=== PATIENT | female | born 1985 | race Caucasian/White ===

== ENCOUNTER 2022-02-28 14:37 | Emergency (ER) | payer OTHER, MEDICAID, SELFPAY ==
[2022-02-28 14:49] VITALS: BP 131/82; PULSE 95; RESP 18; TEMP 36.6; O2SAT 100
[2022-02-28] MEDS: PROPARACAINE 0.5% OPHTH SOL 1 DROPS EYE-RIGHT (14:56)
== END 2022-02-28 17:38 | disposition left against medical advice (07) ==
PROVIDERS: Emergency Provider Emergency Medicine
DX: T15.91XA Foreign body on external eye, part unspecified, right eye, initial encounter (principal)
CPT/HCPCS: 99282

== ENCOUNTER 2023-01-20 09:14 | Emergency (ER) | payer OTHER, MEDICAID, SELFPAY ==
[2023-01-20 09:22] VITALS: BP 138/71; PULSE 91; RESP 18; TEMP 36.8; O2SAT 100; BMI 29.2
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
--- NOTE | 2023-01-20 09:33 | DI.RAD.S_ITS ---
PROCEDURE: XR HAND LT MIN 3V INDICATIONS: r/o fx TECHNIQUE: 3 views of the hand(s) acquired. COMPARISON: None. FINDINGS: Bones: No fractures or dislocations. Carpal bones are normally aligned. No suspicious bony lesions. Soft tissues: No suspicious soft tissue calcifications. IMPRESSION: Unremarkable left hand radiographs. No fracture Approved by: Patrick Soto M.D. on 01/20/2023 at 10:09
--- NOTE | 2023-01-20 09:33 | DI.RAD.S_ITS ---
PROCEDURE: XR WRIST LT MIN 3V INDICATIONS: Trauma, pain TECHNIQUE: 3 views of the wrist were acquired. COMPARISON: None. FINDINGS: Bones: No fractures or dislocations. No suspicious bony lesions. Soft tissues: No suspicious soft tissue calcifications. IMPRESSION: Unremarkable left wrist radiographs Approved by: Patrick Soto M.D. on 01/20/2023 at 9:59
[2023-01-20] MEDS: HYDROCODONE/ACET 5/325 TABLET 1 TAB PO (10:01)
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
--- NOTE | 2023-01-20 11:13 | PC.NURSE ---
1043: [facility] advocate contacted, coming soon 1113: [facility] advocate at bedside
[2023-01-20] MEDS: KETOROLAC 30 MG/ML VIAL 15 MG IV (12:59)
[2023-01-20 13:26] VITALS: BP 145/100; PULSE 85; RESP 16; O2SAT 99
== END 2023-01-20 13:19 | disposition home or self-care (01) ==
PROVIDERS: Emergency Provider Emergency Medicine
DX: S63.92XA Sprain of unspecified part of left wrist and hand, initial encounter (principal); T71.193A Asphyxiation due to mechanical threat to breathing due to other causes, assault, initial encounter; Y04.2XXA Assault by strike against or bumped into by another person, initial encounter
CPT/HCPCS: 70450; 70496; 70498; 73110; 73130; 96374; 99284; J1885

== ENCOUNTER → 2023-10-12 18:11 | Outpatient (CLI) | payer OTHER, MEDICAID, SELFPAY ==
[2023-10-12 18:59] LABS: Influenza A - CEPHEID Flu A NEGATIVE (NEGATIVE); Influenza B - CEPHEID Flu B NEGATIVE (NEGATIVE); Respiratory Syncytial Virus Negative (Negative)
[2023-10-12 19:34] LABS: COVID-19 CEPHEID 4-PLEX PCR Negative (Negative)
== END ==
PROVIDERS: Visit Provider Physician Assistant Medical
DX: R05.1 Acute cough (principal); R50.9 Fever, unspecified
CPT/HCPCS: 87635; 87400 ×2; 87420; 0241U